=== PATIENT | male | born 1980 | race Caucasian/White ===

== ENCOUNTER 2018-12-08 18:00 | Emergency (ER) | payer MEDICAID ==
[~2018-12-08] VITALS: Ht 170.2 cm; Wt 70.3 kg
[2018-12-08 18:16] VITALS: BP 123/73
--- NOTE | 2018-12-08 18:23 | NUR ---
BIB SELF WITH C/O EAR PAIN X 2 DAYS. -N/V/D . DENIES N/V/D; SKIN IS PINK/WARM/DRY; AAOX4 WITH EVEN AND STEADY GAIT; LUNGS CLEAR BL; HR EVEN AND REGULAR; PT DENIES ANY FEVER, CP, SOB, OR COUGH AT THIS TIME; PATIENT STATES PAIN OF 6/10 AT THIS TIME; VSS; PATIENT POSITIONED FOR COMFORT; HOB ELEVATED; BEDRAILS UP X2; BED DOWN. ER MD MADE AWARE OF PT STATUS.
--- NOTE | 2018-12-08 19:05 | NUR ---
RECIEVED REPORT FROM DAY SHIFT RN.
[2018-12-08 20:19] VITALS: BP 119/81
--- NOTE | 2018-12-08 20:19 | NUR ---
Patient discharged with v/s stable. Written and verbal after care instructions given and explained. Patient alert, oriented and verbalized understanding of instructions. Ambulatory with steady gait. All questions addressed prior to discharge. ID band removed. Patient advised to follow up with PMD. Rx of PROMETHAZINE, MOTRIN given. Patient educated on indication of medication including possible reaction and side effects. Opportunity to ask questions provided and answered.
== END 2018-12-08 20:19 | disposition home or self-care (01) ==
LOC: MED 18:00
DX: J06.9 Acute upper respiratory infection, unspecified (principal); H92.03 Otalgia, bilateral; J45.909 Unspecified asthma, uncomplicated
CPT/HCPCS: 99283

== ENCOUNTER 2022-11-13 10:41 | Emergency (ER) | payer MEDICAID ==
[~2022-11-13] VITALS: Ht 170.2 cm; Wt 94.1 kg
[2022-11-13 10:48] VITALS: BP 129/53
--- NOTE | 2022-11-13 10:53 | NUR ---
PT AMB TO BED 9.
--- NOTE | 2022-11-13 11:00 | NUR ---
BIB SELF C/O 05/18 LEFT CHEST PAIN S/P Fall X 3 DAYS. DENIES LOC.
[2022-11-13] MEDS ORDERED: NAPR-1704 PO (13:39)
[2022-11-13 14:02] VITALS: BP 129/53
--- NOTE | 2022-11-13 14:02 | NUR ---
Patient discharged with v/s stable. Written and verbal after care instructions given and explained. Patient alert, oriented and verbalized understanding of instructions. Ambulatory with steady gait. All questions addressed prior to discharge. ID band removed. Patient advised to follow up with PMD. Rx of NAPROXEN (SENT) given. Patient educated on indication of medication including possible reaction and side effects. Opportunity to ask questions provided and answered.
--- NOTE | 2022-11-13 14:52 | NUR ---
Note maritoone in EDM - 11/13/22 at 1452 by [facility] Patient discharged with v/s stable. Written and verbal after care instructions given and explained. Patient alert, oriented and verbalized understanding of instructions. Ambulatory with steady gait. All questions addressed prior to discharge. ID band removed. Patient advised to follow up with PMD. Rx of NAPROXEN (SENT) given. Patient educated on indication of medication including possible reaction and side effects. Opportunity to ask questions provided and answered.
== END 2022-11-13 14:02 | disposition home or self-care (01) ==
LOC: MED 10:41
DX: S20.20XA Contusion of thorax, unspecified, initial encounter (principal); J45.909 Unspecified asthma, uncomplicated; W18.30XA Fall on same level, unspecified, initial encounter; Y93.89 Activity, other specified; Y92.89 Other specified places as the place of occurrence of the external cause; Y99.8 Other external cause status
CPT/HCPCS: 71101; 99283